=== PATIENT | male | born 2000 | race African-American/Black ===

== ENCOUNTER 2018-08-22 13:45 | Emergency (ER) | payer OTHER | END 2018-08-22 14:16 | disposition home or self-care (01) | LOC: M ED 13:45 | DX: J02.9 Acute pharyngitis, unspecified (principal); F17.210 Nicotine dependence, cigarettes, uncomplicated | CPT/HCPCS: 87880 ==

== ENCOUNTER 2020-01-29 17:11 | Emergency (ER) | payer OTHER ==
[~2020-01-29] VITALS: Ht 180.3 cm; Wt 84.4 kg
[2020-01-29 17:12] VITALS: BP 144/74
[2020-01-29] MEDS ORDERED: CYCL10TA PO (17:52)
[2020-01-29] MEDS ORDERED: ACETAMINOPHEN 500 MG TAB PO ONE (18:00)
== END 2020-01-29 18:00 | disposition home or self-care (01) ==
LOC: M ED 17:11 → EDBD 17:11 → M ED 18:00
DX: R51 Headache (principal); V49.19XA Passenger injured in collision with other motor vehicles in nontraffic accident, initial encounter; F17.210 Nicotine dependence, cigarettes, uncomplicated